=== PATIENT | male | born 1960 | race Caucasian/White ===

== ENCOUNTER 2023-04-18 18:07 | Emergency (ER) | payer SELFPAY ==
[2023-04-18] MEDS ORDERED: Sodium Chloride 0.9% 1,000 ML IV SCH (18:30)
[2023-04-18 19:07] LABS: BASOPHILS PERCENT AUTO 0.5 % (0.3-3.8); EOSINOPHILS ABSOLUTE AUTO 0.1 x10-3/uL (0.0-0.6); EOSINOPHILS PERCENT AUTO 2.2 % (0.1-6.8); HEMATOCRIT 43.1 % (38.3-50.1); HEMOGLOBIN 14.3 g/dL (12.9-17.7); LYMPHOCYTES ABSOLUTE AUTO 1.4 x10-3/uL (0.5-4.5); LYMPHOCYTES PERCENT AUTO 20.4 % (15.8-45.3); MEAN CORPUSCULAR HEMOGLOBIN 29.1 pg (27.0-33.3); MEAN CORPUSCULAR HGB CONC 33.1 g/dL (28.7-35.3); MEAN CORPUSCULAR VOLUME 87.7 fL (80.8-98.7); MEAN PLATELET VOLUME 6.9 fL (6.7-11.0); MONOCYTES ABSOLUTE AUTO 0.3 x10-3/uL (0.0-1.2); MONOCYTES PERCENT AUTO 4.9 % (5.5-15.2); PLATELET COUNT,PLT 232 x10(3)uL (117-477); RED BLOOD CELL COUNT 4.91 x10(6)uL (3.90-5.90); RED CELL DISTRIBUTION WIDTH 14.6 % (12.4-15.0); WHITE BLOOD CELL COUNT,WBC 6.9 x10-3/uL (3.2-10.1)
[2023-04-18 19:11] LABS: BLOOD UREA NITROGEN,BUN 18 mg/dL (7-18); CALCIUM 8.7 mg/dL (8.6-10.2); CARBON DIOXIDE,CO2 24 mmol/L (21-32); CHLORIDE,CL 105 mmol/L (100-110); CREATININE 1.2 mg/dL (0.70-1.30); EST CRCL DRUG DOSING (CG) 62.19 mL/min; ESTIMATED GFR 68 mL/min (>60); GLUCOSE RANDOM 130 mg/dL (80-116); POTASSIUM,K 3.3 mmol/L (3.5-5.3); SODIUM,NA 142 mmol/L (135-145)
[2023-04-18 19:16] LABS: A/G RATIO 0.9; ALANINE AMINOTRANSFERASE,ALT 102 U/L (12-36); ALBUMIN 3.5 g/dL (3.2-4.6); ALKALINE PHOSPHATASE 78 IU/L (56-112); ASPARTATE AMNIOTRANSFERASE,AST 57 IU/L (5-25); BILIRUBIN TOTAL 0.4 mg/dL (0.1-1.3); PROTEIN TOTAL,TP 7.3 g/dL (6.0-8.0)
== END 2023-04-19 00:05 | disposition home or self-care (01) ==
LOC: EDBD → FB.ED 18:07
DX: R41.82 Altered mental status, unspecified (principal); F10.929 Alcohol use, unspecified with intoxication, unspecified; F17.210 Nicotine dependence, cigarettes, uncomplicated
CPT/HCPCS: 36415; 70450; 80053; 80307; 84443; 85025; 86140; 87040; 96360; 99284; 99285; J7030